=== PATIENT | female | born 1945 | race Caucasian/White ===

== ENCOUNTER 2017-12-26 19:05 | Emergency (ER) | payer MEDICARE, OTHER ==
[2017-12-26] MEDS ORDERED: Nitroglycerin 2% Ointment 1 INCH/1 GM Packet ONE (19:27)
[2017-12-26 19:48] LABS: ALT (SGPT) 13 U/L (8-55); AST (SGOT) 17 U/L (5-34); Albumin 3.9 g/dL (3.4-4.8); Alkaline Phosphatase 66 U/L (40-150); Anion Gap 14 mmol/L (10-20); BUN (Urea Nitrogen) 10 mg/dL (9.8-20.1); Bilirubin, Total 0.3 mg/dL (0.2-1.2); Calc. Creatinine Clearance 0 mL/min (70-130); Calcium 9.2 mg/dL (7.8-10.44); Carbon Dioxide 21 mmol/L (23-31); Chloride 108 mmol/L (98-107); Estimated GFR-MDRD 71; Globulin 3.1 g/dL (2.4-3.5); Glucose 117 mg/dL (83-110); Lipase 24 U/L (8-78); Potassium 3.9 mmol/L (3.5-5.1); Sodium 139 mmol/L (136-145)
[2017-12-26 19:52] LABS: CKMB 0.7 ng/mL (0-6.6); Troponin I Less than 0.010 ng/mL (< 0.028)
[2017-12-26 19:59] LABS: Anisocytosis SLIGHT = 6-15 cells (100X) (0-5/hpf); Band 4 % (5-11); Elliptocytes SLIGHT = 2-5 cells (100X) (0-1/hpf); Eosinophils 3 % (0-10); Hemoglobin 13.3 g/dL (12.0-16.0); Hypochromia SLIGHT = 6-15 cells (100X) (0-5/hpf); Large Platelets SLIGHT; Lymphocytes 40 % (21-51); MDiff Complete? YES; Mean Corpuscular HGB CONC 33.1 g/dL (32.0-36.0); Mean Corpuscular Hemoglobin 25.6 pg (27.0-31.0); Mean Corpuscular Volume 77.3 fL (78.0-98.0); Mean Platelet Volume 6.8 fL (7.4-10.4); Microcytosis SLIGHT = 6-15 cells (100X) (0-5/hpf); Monocytes 10 % (0-10); Neutrophil 39 % (42-75); PLT Morphology Comment Appears Adequate; Platelet Count 272 thou/uL (130-400); RBC Distribution Width 14.2 % (11.5-14.5); Reactive Lymphocytes 1 % (0-10); Target Cells SLIGHT = 2-5 cells (100X) (0-1/hpf); White Blood Cell (WBC) Count 8.1 thou/uL (4.8-10.8)
--- NOTE | 2017-12-26 20:27 | RAD ---
SINGLE VIEW OF THE CHEST 12/26/17 COMPARISON: None. HISTORY: Chest pain. FINDINGS: Single view of the chest shows a normal sized cardiomediastinal silhouette. There is no evidence of c onsolidation, mass, or pleural effusion. The bones are unremarkable. IMPRESSION: No evidence of acute cardiopulmonary disease. POS: [facility]
== END 2017-12-26 21:20 | disposition home or self-care (01) ==
LOC: SCSER 19:05
DX: R07.89 Other chest pain (principal); E78.00 Pure hypercholesterolemia, unspecified; E03.9 Hypothyroidism, unspecified; Z79.899 Other long term (current) drug therapy
CPT/HCPCS: 71045; 80053; 82553; 83690; 83880; 84484; 85025; 93005

== ENCOUNTER 2018-02-07 07:26 | Outpatient (CLI) | payer MEDICARE, OTHER ==
--- NOTE | 2018-02-07 11:19 | CT ---
CT ABDOMEN AND PELVIS WITH CONTRAST: Date: 02/07/18 HISTORY: R10.13, epigastric pain and bloating. Family history of cancer. Patient has history of appendectomy a nd parathyroidectomy. COMPARISON: CT abdomen/pelvis from 2007. FINDINGS: There is a large sliding hiatal hernia with approximately 40% of the gastric volume in the thoracic c avity. The lung bases are clear. No pericardial effusion. Exam is limited as there is delay in the area of contrast within the renal collecting systems bilater ally. Minimal proximal small bowel mesenteric edema, nonspecific. Liver is unremarkable. Gallbladder is unremarkable. Spleen and pancreas are unremarkable. Aortoiliac contour is nonaneurysmal. No free i ntraperitoneal gas or fluid. Moderate degenerative facet changes lower lumbar spine. There are no filling defects within the renal calices, pelvises, or ureters. No adenopathy. Normal proximal small bowel rotation. IMPRESSION: Large sliding hiatal hernia with approximately 40% of gastric volume in stomach. No other acute abnor mality in abdomen or pelvis. POS: [facility]
== END 2018-02-07 07:27 | disposition home or self-care (01) ==
LOC: SCSCT 07:26
PROVIDERS: ATTEND Internal Medicine Gastroenterology
DX: Z12.11 Encounter for screening for malignant neoplasm of colon (principal); R14.0 Abdominal distension (gaseous); R10.13 Epigastric pain; R79.9 Abnormal finding of blood chemistry, unspecified; K44.9 Diaphragmatic hernia without obstruction or gangrene
CPT/HCPCS: 74177

== ENCOUNTER 2018-04-26 12:32 | Outpatient (CLI) | payer MEDICARE, OTHER ==
--- NOTE | 2018-04-26 18:14 | NM ---
RADIONUCLIDE HEPATOBILIARY SCAN WITH GALLBLADDER EJECTION FRACTION: 04/26/18 HISTORY: Upper abdomen pain. FINDINGS: Early images show physiologic uptake of radiotracer throughout the hepatic parenchyma. Gallbladder fi rst seen at 2 minutes. Uptake is evident within the small bowel at 38 minutes. After administration o f 8 oz fatty meal, there is good excretion of radiotracer from the gallbladder to the small bowel. Ej ection fraction calculated at 98%. IMPRESSION: Normal hepatobiliary scan. Normal ejection fraction. POS: [facility]
== END 2018-04-26 12:33 | disposition home or self-care (01) ==
LOC: NM 12:32
PROVIDERS: ATTEND Internal Medicine Gastroenterology
DX: R10.13 Epigastric pain (principal)
CPT/HCPCS: 78227; A9537

== ENCOUNTER 2018-10-31 13:30 | Outpatient (CLI) | payer MEDICARE, OTHER ==
--- NOTE | 2018-11-11 16:46 | MMO ---
Bilateral MAMMO Bilat Screen [facility]. CLINICAL HISTORY: Patient is 73 years old and is seen for screening. The patient has the following family history of breast cancer: sister, at age 58, malignant (generic). The patient has no personal history of cancer. VIEWS: The views performed were: bilateral craniocaudal and bilateral mediolateral oblique. FILMS COMPARED: The present examination has been compared to prior imaging studies performed at [facility] on 07/14/2015, 07/21/2015, 09/05/2016 and 10/10/2017. This study has been interpreted with the assistance of computer-aided detection. MAMMOGRAM FINDINGS: There are scattered fibroglandular densities. There are no suspicious masses, suspicious calcifications, or new areas of architectural distortion. IMPRESSION: THERE IS NO MAMMOGRAPHIC EVIDENCE OF MALIGNANCY. A ROUTINE FOLLOW-UP MAMMOGRAM IN 1 YEAR IS RECOMMENDED. ACR BI-RADS Category 1 - Negative MAMMOGRAPHY NOTE: 1. A negative mammogram report should not delay a biopsy if a dominant of clinically suspicious mass is present. 2. Approximately 10% to 15% of breast cancers are not detected by mammography. 3. Adenosis and dense breasts may obscure an underlying neoplasm.
== END 2018-10-31 13:31 | disposition home or self-care (01) ==
LOC: SCSMAMMO 13:30
PROVIDERS: ATTEND Internal Medicine
DX: Z12.31 Encounter for screening mammogram for malignant neoplasm of breast (principal); Z80.3 Family history of malignant neoplasm of breast
CPT/HCPCS: 77067

== ENCOUNTER → 2022-04-06 | Day surgery (SDC) | payer MEDICARE, OTHER | END | disposition home or self-care (01) | LOC: BICULT 12:20 | PROVIDERS: ATTEND Family Medicine | PROC: 0H9T3ZX Drainage of Right Breast, Percutaneous Approach, Diagnostic (ICD-10-PCS; principal; 2022-04-06) | DX: D05.11 Intraductal carcinoma in situ of right breast (principal) | CPT/HCPCS: 19083; 88305; 88341; 88342 ==

== ENCOUNTER 2022-05-29 09:53 | Outpatient (CLI) | payer MEDICARE, OTHER ==
[2022-05-29 11:32] LABS: #Basophils 0.1 10x3/uL (0.0-0.2); #Eosinphils 0.3 10x3/uL (0.0-0.5); #Monocytes 0.6 10x3/uL (0.0-1.1); #Neutrophils 3.3 10x3/uL (1.5-8.4); %Basophils 1.1 % (0.0-2.0); %Eosinophils 4.1 % (0.0-6.0); %Lymphocytes 33.3 % (18.0-47.0); %Monocytes 9.6 % (0.0-10.0); %Neutrophils 51.7 % (40.0-75.0); Hemoglobin 12.3 g/dL (12.0-15.5); Mean Corpuscular HGB CONC 32.5 g/dL (32.0-36.0); Mean Corpuscular Hemoglobin 25.3 pg (27.0-33.0); Mean Corpuscular Volume 77.6 fl (81.6-98.3); Mean Platelet Volume 9.3 fl (7.4-10.4); Platelet Count 336 10x3/uL (150-450); RBC Distribution Width 17.7 % (11.5-14.5); Red Blood Cell (RBC) Count 4.87 10x6/uL (3.90-5.03); White Blood Cell (WBC) Count 6.3 10x3/uL (3.5-10.5)
[2022-05-29 11:52] LABS: Anion Gap 13 mmol/L (10-20); BUN (Urea Nitrogen) 10 mg/dL (9.8-20.1); Calc. Creatinine Clearance 0 mL/min (70-130); Calcium 8.9 mg/dL (7.8-10.44); Carbon Dioxide 26 mmol/L (23-31); Chloride 109 mmol/L (98-107); Estimated GFR 84; Glucose 89 mg/dL (83-110); Potassium 3.8 mmol/L (3.5-5.1); Sodium 144 mmol/L (136-145)
== END 2022-05-29 09:54 | disposition home or self-care (01) ==
LOC: LABBT 09:53
PROVIDERS: ATTEND Surgery
DX: Z01.818 Encounter for other preprocedural examination (principal); D05.11 Intraductal carcinoma in situ of right breast
CPT/HCPCS: 80048; 85025; 93005; 93010

== ENCOUNTER 2022-06-01 06:37 | Day surgery (SDC) | payer MEDICARE, OTHER ==
[2022-05-31 12:48] VITALS: BMI 30.5
[2022-06-01] MEDS ORDERED: Fentanyl 250 MCG/5 ML VIAL ONE (09:56)
[2022-06-01] MEDS ORDERED: Lidocaine 2% PF 5 ML VIAL ONE (10:00)
[2022-06-01] MEDS ORDERED: Methylene Blue 50 MG/10 ML AMPUL ONE (10:00)
[2022-06-01] MEDS ORDERED: Bupivacaine/Epinephrine 0.25% 30 ML VIAL ONE (10:00)
[2022-06-01] MEDS ORDERED: Sodium Chloride 0.9% 100 ML ONE (10:16)
[2022-06-01] MEDS ORDERED: CEFAZOLIN 2 GM VIAL ONE (10:16)
[2022-06-01] MEDS ORDERED: Ondansetron PF 4 MG/2 ML Vial ONE (10:27)
[2022-06-01] MEDS ORDERED: Lidocaine 1% PF 5 ML VIAL ONE (10:27)
[2022-06-01] MEDS ORDERED: PROPOFOL 200 MG/20 ML VIAL ONE (10:27)
[2022-06-01] MEDS ORDERED: ePHEDrine 50 MG/ML VIAL ONE (10:27)
[2022-06-01] MEDS ORDERED: Dexamethasone 20 MG/5 ML VIAL ONE (10:27)
[2022-06-01] MEDS ORDERED: Fentanyl 100 MCG/2 ML VIAL ONE (11:42)
[2022-06-01] MEDS ORDERED: HYDROcodone/Acetaminophen 5/325 mg Tablet ONE (12:56)
== END 2022-06-01 13:16 | disposition home or self-care (01) ==
LOC: SDC 06:37
PROVIDERS: ATTEND Surgery
PROC: 0HBT0ZZ Excision of Right Breast, Open Approach (ICD-10-PCS; principal; 2022-06-01)
PROC: 07B50ZX Excision of Right Axillary Lymphatic, Open Approach, Diagnostic (ICD-10-PCS; 2022-06-01)
DX: D05.11 Intraductal carcinoma in situ of right breast (principal); E78.00 Pure hypercholesterolemia, unspecified; E07.9 Disorder of thyroid, unspecified; Z87.891 Personal history of nicotine dependence; Z79.890 Hormone replacement therapy; Z79.899 Other long term (current) drug therapy; Z88.1 Allergy status to other antibiotic agents
CPT/HCPCS: 19281; 19301; 38525; 38900; 76098; 78195; A9541; Q9968; 88307; 88342; J1100; J2001; J2405; J2704; J3010; J3490

== ENCOUNTER 2022-06-29 09:51 | Day surgery (SDC) | payer MEDICARE, OTHER ==
[2022-06-28 11:09] VITALS: BMI 30.5
[2022-06-29] MEDS ORDERED: SUGAMMADEX SODIUM 200 MG/2 ML VIAL ONE (13:12)
[2022-06-29] MEDS ORDERED: fentaNYL PF 100 MCG/2 ML SYRINGE ONE (13:12)
[2022-06-29] MEDS ORDERED: Bupivacaine/Epinephrine 0.25% 30 ML VIAL ONE (13:13)
[2022-06-29] MEDS ORDERED: Sodium Chloride 0.9% 100 ML ONE (13:19)
[2022-06-29] MEDS ORDERED: CEFAZOLIN 2 GM VIAL ONE (13:19)
[2022-06-29] MEDS ORDERED: Lidocaine 1% PF 5 ML VIAL ONE ×2 (13:32→13:34)
[2022-06-29] MEDS ORDERED: Dexamethasone 20 MG/5 ML VIAL ONE (13:32)
[2022-06-29] MEDS ORDERED: Ondansetron PF 4 MG/2 ML Vial ONE (13:32)
[2022-06-29] MEDS ORDERED: ePHEDrine 50 MG/ML VIAL ONE (13:32)
[2022-06-29] MEDS ORDERED: Fentanyl 100 MCG/2 ML VIAL ONE (14:45)
== END 2022-06-29 15:42 | disposition home or self-care (01) ==
LOC: SDC 09:51
PROVIDERS: ATTEND Surgery
PROC: 0HBT0ZZ Excision of Right Breast, Open Approach (ICD-10-PCS; principal; 2022-06-29)
DX: D05.11 Intraductal carcinoma in situ of right breast (principal); N60.21 Fibroadenosis of right breast; E78.00 Pure hypercholesterolemia, unspecified; Z87.891 Personal history of nicotine dependence; Z79.890 Hormone replacement therapy; Z79.899 Other long term (current) drug therapy; Z88.1 Allergy status to other antibiotic agents
CPT/HCPCS: 88307; 88341; 88342; J1100; J2405; J3010; J3490

== ENCOUNTER 2022-08-07 11:06 | Day surgery (SDC) | payer MEDICARE, OTHER ==
[2022-08-07] MEDS ORDERED: Fentanyl 100 MCG/2 ML VIAL ONE ×2 (12:15→15:38)
[2022-08-07] MEDS ORDERED: Midazolam HCl 2 mg/2 ml Vial ONE (12:15)
[2022-08-07] MEDS ORDERED: CEFAZOLIN 2 GM VIAL ONE (13:19)
[2022-08-07] MEDS ORDERED: Sodium Chloride 0.9% 100 ML ONE (13:19)
[2022-08-07] MEDS ORDERED: fentaNYL PF 100 MCG/2 ML SYRINGE ONE (13:48)
[2022-08-07] MEDS ORDERED: Lidocaine 1% PF 5 ML VIAL ONE (14:03)
[2022-08-07] MEDS ORDERED: PROPOFOL 200 MG/20 ML VIAL ONE (14:03)
[2022-08-07] MEDS ORDERED: Ondansetron PF 4 MG/2 ML Vial ONE (14:03)
[2022-08-07] MEDS ORDERED: ePHEDrine 50 MG/ML VIAL ONE (14:03)
[2022-08-07] MEDS ORDERED: Esmolol 100 MG/10 ML VIAL ONE (14:03)
[2022-08-07] MEDS ORDERED: Ropivacaine 0.5% HCl/PF (150 MG/30 ML VIAL) ONE (14:03)
[2022-08-07] MEDS ORDERED: PHENYLEPHRINE-NS 100 MCG/ML 10 ML SYRINGE ONE (14:03)
[2022-08-07] MEDS ORDERED: Dexamethasone 20 MG/5 ML VIAL ONE (14:03)
[2022-08-07] MEDS ORDERED: Glycopyrrolate 0.2 MG/ML 5 ML SYRINGE ONE (14:03)
== END 2022-08-07 17:07 | disposition home or self-care (01) ==
LOC: SDC 11:06
PROVIDERS: ATTEND Surgery
PROC: 0HTT0ZZ Resection of Right Breast, Open Approach (ICD-10-PCS; principal; 2022-08-07)
DX: D05.11 Intraductal carcinoma in situ of right breast (principal); D24.1 Benign neoplasm of right breast; D23.5 Other benign neoplasm of skin of trunk; E78.00 Pure hypercholesterolemia, unspecified; Z87.891 Personal history of nicotine dependence; Z79.890 Hormone replacement therapy; Z79.899 Other long term (current) drug therapy; Z88.1 Allergy status to other antibiotic agents
CPT/HCPCS: 88305; 88307; 88342; J1100; J2250; J2405; J2704; J2795; J3010; J3490